=== PATIENT | female | born 2000 | race Caucasian/White ===

== ENCOUNTER 2022-01-30 01:23 | Inpatient (IN) | payer BC, SELFPAY ==
[2022-01-30] VITALS (7 sets, daily range): BP systolic 103–122; BP diastolic 52–87; PULSE 80–96; RESP 14–18; TEMP 35.9–37.2; O2SAT 96–99; BMI 20.5
--- NOTE | ~2022-01-30 | CT_ITS ---
EXAMINATION: CT ABDOMEN AND PELVIS WITH CONTRAST CLINICAL INFORMATION: History of total colectomy. Vomiting. Possible SBO. COMPARISON: None TECHNIQUE: Multidetector volumetric images were obtained from the superior aspect of the liver through the pubic symphysis following administration 85 mL of Omnipaque 350 intravenous contrast. Sagittal and coronal reformatted images were obtained on the technologist's workstation. Oral contrast: No This CT examination was performed using dose optimization techniques as appropriate, variously including the following: *Automated exposure control *Adjustment of mA and/or kV according to patient size (this includes techniques or standardized protocols for targeted exams where dose is matched to indication/reason for exam; i.e. extremities or head) *Use of iterative reconstruction technique DLP: 400 mGy-cm FINDINGS: LUNG BASES: The visualized lung bases are unremarkable. LIVER, GALLBLADDER, AND BILIARY TREE: The liver is normal in size, shape, and attenuation. No focal hepatic lesion or biliary ductal dilatation is present. The gallbladder is unremarkable with no evidence of radiopaque gallstones, gallbladder wall thickening, or obvious pericholecystic inflammatory changes. PANCREAS: Unremarkable. SPLEEN: Unremarkable. ADRENAL GLANDS: Unremarkable. KIDNEYS AND URETERS: The kidneys are normal in size, shape, and attenuation. No hydronephrosis, hydroureter, or calculi seen. No perinephric stranding. BLADDER: Unremarkable. GASTROINTESTINAL TRACT: The stomach is unremarkable. Dilated small bowel leading to an area of fecalization in the pelvis. This leads to the anastomosis in the right lower quadrant. The patient is status post colectomy. The appearance is consistent with obstruction. ABDOMINAL WALL: No significant hernia is appreciated. LYMPH NODES: Normal. VASCULAR: Unremarkable. PELVIC VISCERA: The uterus and adnexa are unremarkable. OSSEOUS STRUCTURES: Unremarkable. CT/CT abdomen pelvis w con IMPRESSION: Total colectomy. There is an enterocolic anastomosis in the right lower quadrant. The bowel leading to the anastomosis is dilated with fecalization. The more proximal small bowel is also dilated and fluid-filled. This appearance is consistent with an obstruction. Fleischner guidelines were followed.
[2022-01-30 01:55] LABS: Basophils Percent Auto 0.2 % (0-2); Eosinophils Percent Auto 0.1 % (0-4); Hemoglobin 14.8 g/dl (12.0-16.0); Imm Gran Abs Auto 0.04 X10*3/uL (0.00-0.03); Imm Gran Pct Auto 0.3 % (0.0-0.4); Lymphocytes Absolute Auto 1.2 X10*3/uL (1.2-4.9); Lymphocytes Percent Auto 8.7 % (20-40); Mean Corpuscular HGB Conc 32.9 g/dl (31.0-35.0); Mean Corpuscular Hemoglobin 27.1 pg (27.0-33.0); Mean Corpuscular Volume 82.4 fL (80.0-98.0); Mean Platelet Volume 10.1 fL (9.4-12.3); Monocytes Absolute Auto 0.4 X10*3/uL (0.1-1.2); Neutrophils Absolute Auto 12.6 x10*3/uL (2.0-8.3); Neutrophils Percent Auto 87.7 % (45-73); Platelet Count 201 X10*3/uL (160-400); Red Blood Count 5.46 X10*6/uL (4.20-5.50); Red Cell Distribution Width 12.5 % (11.0-16.0); White Blood Count 14.3 X10*3/uL (4.8-10.8)
[2022-01-30 01:56] LABS: MANUAL DIFF FLAG NO
[2022-01-30 02:15] LABS: Alanine Aminotransferase 9 U/L (0-31); Albumin Level 4.7 g/dL (3.5-5.0); Alkaline Phosphatase 76 U/L (39-117); Anion Gap 19 (12-20); Aspartate Amino Transferase 17 U/L (5-31); Bilirubin Total 1.1 mg/dL (0.0-1.0); Blood Urea Nitrogen 8 mg/dL (9-16); C Reactive Protein 0.48 mg/dL (< or = 0.50); Calcium 9.7 mg/dL (8.4-10.2); Carbon Dioxide 21 mmol/L (22-29); Chloride 104 mmol/L (96-108); Creatinine Clr Calc Pharmacy 100.6; Estimated Glomerular Filt Rate > 60; Glucose Random 117 mg/dL (60-115); Potassium 4.2 mmol/L (3.3-5.1); Sodium 140 mmol/L (135-145); Total Protein 7.7 g/dL (6.5-8.0)
[2022-01-30 02:32] LABS: Lipase 11 U/L (8-78)
[2022-01-30 03:18] LABS: HCG Quantitative < 2 mIU/mL
[2022-01-30] MEDS: ondansetron HCL 4 MG/2 ML VIAL IVPUSH ×2 (03:44→09:42)
[2022-01-30] MEDS: Ketorolac Tromethamine 15 MG/ML VIAL IVPUSH (03:44)
[2022-01-30] MEDS: Morphine Sulfate 2 MG/ML CARTRIDGE IVPUSH (03:44)
[2022-01-30] MEDS: Lactated Ringers 1,000 ML 999 ML IV (03:51)
--- NOTE | 2022-01-30 04:19 | ED_ITS ---
HPI - Abdominal Pain General Chief Complaint: Abdominal Pain Stated Complaint: Bowel obstruction Time Seen by Provider: 01/30/22 02:54 Source: patient Mode of arrival: ambulatory Limitations: no limitations History of Present Illness HPI narrative: 21 yo female hx of ulcerative colitis s/p total colectomy with J pouch hx of reported self resolved obstruction in the past. She comes in with reports of pain, vomiting, constipation since Sunday. Minimal flatus. Worried she has bowel obstruction MD elicited complaint: abdominal pain Pertinent past history: other (UC with bowel obstruction) Onset (ago): day(s) (Sunday ) Pain Consistency: constant Location: diffuse Severity: moderate Quality: cramping and stabbing Radiation: none Migration to: no migration Relieving factors: eating and movement Context: other (IBD with surgery ) Associated symptoms: nausea and vomiting Related Data Allergies Allergy/AdvReac Type Severity Reaction Status Date / Time amoxicillin Allergy Hives Verified 01/30/22 01:33 Review of Systems Review of Systems Constitutional : No Weight loss, No Fever, No Chills ENT/Mouth : No sore throat, No Rhinorrhea Eyes: No Swelling, No Redness Cardiovascular : No Chest Pain, No SOB, NoEdema Respiratory : No Cough, No Sputum, No Wheezing Gastrointestinal : Positive Nausea, Positive Vomiting, no Diarrhea, positive abdominal Pain, No Hematochezia, No Melena Genitourinary : No Dysuria, No Urinary Frequency, No Hematuria, No Urgency Musculoskeletal : No joint pain, No Myalgias, No Joint Swelling Skin : No Skin Lesions, No rash Neuro : No Weakness, No Numbness, No Dizziness, No Headache Psych : No Anxiety/Panic, No Depression Heme/Lymph: No Bruising, No Lymphadenopathy Endocrine : No Polyuria, No Polydipsia All other systems reviewed and are negative. [facility] Past Medical History Attestation statement: The following information was validated with the patient. Medical History (Updated 01/30/22 @ 05:40 by Rica Guerrero DO) Celiac disease Ulcerative colitis Surgical History H/O total colectomy Social History Social History (Updated 01/30/22 @ 04:30 by Rica Guerrero DO) Patient Tobacco Use Status: Never used Tobacco Advance Directives: No Physical Exam ED Vital Signs: Vital Signs - 24 hr 01/30/22 01:34 01/30/22 03:44 Temperature 98.7 F Pulse Rate 92 Respiratory Rate 16 14 Blood Pressure 122/87 Pulse Oximetry 97 Oxygen Delivery Method Room Air BMI result Body Mass Index 20.5 Appearance: Alert. Oriented X3. in pain mild acute distress. Eyes: Pupils equal, round and reactive to light. ENT: Pharynx normal. Neck: Normal inspection. Neck supple. CVS: Normal heart rate and rhythm. Pulses normal. Respiratory: No respiratory distress. Breath sounds normal. Abdomen: Soft and moderate ttp some distention noted Skin: Skin warm and dry. Normal skin color. Normal skin turgor. Extremities: No lower extremity edema. No calf ttp Neuro: Oriented X 3. No motor deficit. No sensory deficit. Course Course Course Narrative: message sent to Dr. Boom Nur to admit patient MDM - Abdominal Pain MDM Narrative Medical decision making narrative: 21 yo female with UC s/p prior total colectomy here with pain n/v and constipation worried she has bowel obstruction at this time will obtain labs, infl markers, - hydrate, IV toradol and IV morphine for pain. CT scan for obstruction ordered. Dispo per results and findings. Lab Data Result diagrams: 01/30/22 01:50 01/30/22 01:50 Labs: Lab Results 01/30/22 01/30/22 01/30/22 Range/Units 01:50 01:50 04:56 WBC 14.3 H (4.8-10.8) X10*3/uL RBC 5.46 (4.20-5.50) X10*6/uL Hgb 14.8 (12.0-16.0) g/dl Hct 45.0 (37.0-47.0) % MCV 82.4 (80.0-98.0) fL MCH 27.1 (27.0-33.0) pg MCHC 32.9 (31.0-35.0) g/dl RDW 12.5 (11.0-16.0) % Plt Count 201 (160-400) X10*3/uL MPV 10.1 (9.4-12.3) fL Immature Gran % (Auto) 0.3 (0.0-0.4) % Neut % (Auto) 87.7 H (45-73) % Lymph % (Auto) 8.7 L (20-40) % Shoshone % (Auto) 3.0 (2-11) % Eos % (Auto) 0.1 (0-4) % Baso % (Auto) 0.2 (0-2) % Lymph # (Auto) 1.2 (1.2-4.9) X10*3/uL Shoshone # (Auto) 0.4 (0.1-1.2) X10*3/uL Eos # (Auto) 0.0 (0.0-0.4) X10*3/uL Baso # (Auto) 0.0 (0.0-0.2) X10*3/uL Abs Immat Gran (auto) 0.04 H (0.00-0.03) X10*3/uL Absolute Neuts (auto) 12.6 H (2.0-8.3) x10*3/uL Absolute Nucleated RBC 0.000 (0.0-0.012) X10*3/uL Nucleated RBC % (auto) 0.0 (0.0-0.2) /100WBC Sodium 140 (135-145) mmol/L Potassium 4.2 (3.3-5.1) mmol/L Chloride 104 (96-108) mmol/L Carbon Dioxide 21 L (22-29) mmol/L Anion Gap 19 (12-20) BUN 8 L (9-16) mg/dL Creatinine 0.76 (0.5-1.4) mg/dL Estim Creat Clear Calc 100.6 Estimated GFR > 60 Random Glucose 117 H (60-115) mg/dL Calcium 9.7 (8.4-10.2) mg/dL Total Bilirubin 1.1 H (0.0-1.0) mg/dL AST 17 (5-31) U/L ALT 9 (0-31) U/L Alkaline Phosphatase 76 (39-117) U/L C-Reactive Protein 0.48 (< or = 0.50) mg/dL Total Protein 7.7 (6.5-8.0) g/dL Albumin 4.7 (3.5-5.0) g/dL Lipase 11 (8-78) U/L Beta HCG, Quant < 2 mIU/mL COVID-19 (ADAL) Negative (Negative) COVID-19 Clin Com See Note Discharge Plan Discharge Clinical Impression: Small bowel obstruction, Vomiting Patient Disposition: Admitted As Inpatient
[2022-01-30] MEDS: iohexoL 350 MG/ML 100 ML INFUS..BTL 85 ML IV (04:20)
[2022-01-30 05:16] LABS: COVID-19 Test Negative (Negative)
[2022-01-30] MEDS: Lactated Ringers 1,000 ML 100 ML IVCONT (05:46)
[2022-01-30] MEDS: HYDROmorphone HCl 1 MG/ML SYRINGE 0.5 MG IVPUSH ×4 (06:14→21:43)
[2022-01-30] MEDS: Dextrose 5 % and Lactated Ring 1,000 ML 125 ML IVCONT ×2 (06:58→17:14)
--- NOTE | 2022-01-30 08:56 | P.HPGS_ITS ---
History of Present Illness History of Present Illness Date of Service: 01/30/22 Chief complaint: small Bowel obstruction Narrative: Latisha Rae is a 21 year old female Presenting with a sudden onset of abdominal pain in the lower abdomen 2 days prior to admission. The pain seems to increase with oral intake. She then developed nausea and vomiting yesterday and subsequently presented to the emergency department for further evaluation. Her past history is significant for ulcerative colitis diagnosed as the age of 33 years old. She subsequently underwent a total abdominal colectomy with J-pouch at 9 years old. She has had previous episodes of abdominal pain and presumed bowel obstruction which resolved spontaneously. This is the worst episode of pain she has experienced since her surgery. She reports passing flatus but the bowels have not moved for several days. In the emergency department she was noted to have an elevated WBC. CT abdomen and pelvis revealed dilated loops of distal small bowel proximal to the anastomosis suggestive of a bowel obstruction Perhaps due to stricture at the anastomosis. She is admitted to the surgical service for further management. She is currently on no medication for the ulcerative colitis. Review of Systems Review of Systems: Yes all other systems are reviewed and are negative Gastrointestinal: Gastrointestinal: Reports as per HPI, Reports abdominal pain, Reports bloating, Reports GI cramping, Reports nausea and Reports vomiting PMFSH Past Medical History Medical History (Updated 01/30/22 @ 05:40 by Rica Guerrero DO) Celiac disease Ulcerative colitis Surgical History Surgical History H/O total colectomy Social History Social History (Updated 01/30/22 @ 04:30 by Rica Guerrero DO) Patient Tobacco Use Status: Never used Tobacco Advance Directives: No Meds Allergies Allergy/AdvReac Type Severity Reaction Status Date / Time amoxicillin Allergy Hives Verified 01/30/22 01:33 Active Medications: Current Medications Acetaminophen (Acetaminophen 325 Mg Tablet) 650 mg PO Q6H PRN PRN Reason: Pain, Mild (Pain Scale 1-3) Hydromorphone HCl (Hydromorphone Hcl 1 Mg/Ml Syringe) 0.5 mg IVPUSH Q4H PRN; Protocol PRN Reason: Pain, Severe (Pain Scale 7-10) Last Admin: 01/30/22 06:14 Dose: 0.5 mg Lactated Ringer's (Lr) 1,000 mls @ 100 mls/hr IVCONT .Q10H REPLACED BY [facility] Last Admin: 01/30/22 05:46 Dose: 100 mls/hr Dextrose/Lactated Ringer's (D5lr) 1,000 mls @ 125 mls/hr IVCONT .Q8H REPLACED BY [facility] Last Admin: 01/30/22 06:58 Dose: 125 mls/hr Ondansetron HCl (Ondansetron Hcl 4 Mg/2 Ml Vial) 4 mg IVPUSH Q8H PRN PRN Reason: Nausea Oxycodone HCl (Oxycodone Hcl Immed Release 5 Mg Tablet) 5 mg PO Q6H PRN PRN Reason: Pain, Moderate (Pain Scale 4-6 Sodium Chloride (0.9 % Sodium Chloride Flush 3 Ml Syringe) 3 ml IVFLUSH QSHIFT REPLACED BY [facility] Last Admin: 01/30/22 08:03 Dose: Not Given Zolpidem Tartrate (Zolpidem Tartrate 5 Mg Tablet) 5 mg PO BEDTIME PRN PRN Reason: Insomnia Physical Exam Vital Signs: Vital Signs: Last Vital Signs Temp 98.7 F 01/30/22 01:34 Pulse 92 01/30/22 06:02 Resp 14 01/30/22 06:14 BP 116/57 L 01/30/22 06:02 Pulse Ox 96 01/30/22 06:02 O2 Del Method 01/30/22 06:02 BMI result Body Mass Index 20.5 Const: General: cooperative and no acute distress Nutritional Appearance: thin Orientation/consciousness: patient oriented x3 Limitations: no limitations HEENT: Head: Yes normocephalic and Yes atraumatic Ears: hearing grossly normal bilaterally Neck: Neck: Yes no JVD Resp: Effort & Inspection: normal respiratory effort, no audible wheezes, no cough and no respiratory distress Auscultation: clear to auscultation bilaterally GI: Inspection: Yes normal to inspection Palpation (GI): Soft to palpation, Tenderness to palpation present (GI), no guarding, not rigid and No hepatosplenomegaly present Percussion: Yes dullness to percussion Rectal Exam - Female: deferred Skin: General skin exam: no rashes or lesions noted Neuro: General: patient oriented x3 Extrem: General: Yes no clubbing, cyanosis or edema Results Results Labs: Short CBC 01/30/22 Range/Units 01:50 WBC 14.3 H (4.8-10.8) X10*3/uL Hgb 14.8 (12.0-16.0) g/dl Hct 45.0 (37.0-47.0) % Plt Count 201 (160-400) X10*3/uL BMP 01/30/22 01:50 Sodium 140 Potassium 4.2 Chloride 104 Carbon Dioxide 21 L BUN 8 L Creatinine 0.76 Calcium 9.7 Liver Function 01/30/22 Range/Units 01:50 Total Bilirubin 1.1 H (0.0-1.0) mg/dL AST 17 (5-31) U/L ALT 9 (0-31) U/L Alkaline Phosphatase 76 (39-117) U/L Albumin 4.7 (3.5-5.0) g/dL Assessment and Plan (1) Small bowel obstruction: Status: Acute Plan 21-year-old female patient with history of ulcerative colitis, status post total colectomy with J-pouch now with possible stricture at the anastomosis and subsequent bowel obstruction. Patient will be made NPO started on IV fluids and admitted to the surgical service. Gastroenterology consultation obtained, discussed with Dr. Hinds. Repeat laboratories in a.m.. Quality Stroke Does the patient have a stroke diagnosis?: No VTE Prior VTE?: No VTE Risk Level:: Surgical - low VTE Device Contraindication: N/A - Device Ordered VTE Drug Contraindication: Treatment Not Indicated Procedures Date of Service Date of Service: 01/30/22
--- NOTE | 2022-01-30 09:51 | MHC.CM.PN ---
NO IMM REQUIRED PATIENT REPORTS SHE IS STAYING WITH FRIENDS WILL BE A STUDENT AT [employer] untapt, IS ORIGINALLY FROM [place]. SHE IS INDEPENDENT HOME AND COMMUNITY NO DME OR HOME SERVICES HCP IN [place]/COPY REQUESTED PCP IN [place], HASN'T ESTABLISHED AN PCP HERE GAB[facility]ELE PERKINS'[facility] [employer] [facility]SPORT BY FRIEND. D/C PLAN: HOME SELF-CARE
--- NOTE | 2022-01-30 10:11 | P.CDIC_ITS ---
CDI Concurrent Query Documentation Clarification: PHYSICIAN'S DOCUMENTATION REQUEST Date of Query: 01/30/22 1012 Patient Name: Latisha Rae Admit Date: 01/30/22 Dear Doctor, A review of the medical record indicates additional documentation may be needed. Please review below and update the documentation accordingly. Clinical Indicators: The following diagnoses or signs and symptoms were noted in the patient record: Risk Factors/Clinical Indicators/Treatments Per H&P 01/30/22: history of ulcerative colitis, status post total colectomy with J-pouch now with possible stricture at the anastomosis and subsequent bowel obstruction Based on the above, could you clarify in the Progress Notes the appropriate diagnosis, if significant, that supports the above abnormalities and additional evaluation, monitoring, and/or treatment rendered: * Partial small bowel obstruction * Complete small bowel obstruction * Other (please specify) * Unable to determine Use of terms such as suspected, likely, concern for, or probable (associated with a specific diagnosis that is being evaluated, monitored, or treated as if it exists) are acceptable and can be coded in the inpatient setting, when documented at the time of discharge. Thank you, Caity Hickey RN Extension: [phone] Please use your independent medical judgment in providing your response. THIS QUERY IS PART OF THE PERMANENT MEDICAL RECORD Provider Response: Other Other Diagnosis: Partial small bowel obstruction
[2022-01-30] MEDS: Metoclopramide HCl 10 MG/2 ML VIAL 5 MG IVPUSH ×2 (11:30→21:04)
--- NOTE | 2022-01-30 18:35 | P.EN_ITS ---
Event Note Date of Service: 01/30/22 Event Note: GI Consult-Full note dictated-History via patient, her girlfriend, and the EMR. Imp: 21 yo female s/p a reported total colectomy at age 9 for refractory ulcerative colitis with what she describes as a 2 stage J-pouch procedure with a temporary ileostomy. She also describes a history of celiac disease for which she is on a gluten-free diet. She reports being very stable with about 5 or 6 BM's QD until 2020 when she had a transient obstruction with associated N/V, abdominal pain, and decreased BM's. That resolved in about 24 hours with just supportive care in a hospital in [place]. She did see a GI MD in [place] but did not undergo any procedures or treatments. She was well again until just prior to this admission when she developed N/V, abdominal pain and cramps, and decreased BM's. This seemed to have been related to eating a lot of popcorn. Her CT is c/w a distal obstruction above the pouch. Over the past 24 hours since admission she has already started having BM's with resolution of her N/V and improvement in her pain. Her abdominal exam is soft and nondistended, but with some tenderness and somewhat diminished BS. She has a normal CRP and the CT does not describe any significant inflammatory changes nor fluid collections. Given her history in 2020 and at the present time of the abrupt onset of her symptoms and the relatively rapid return of bowel function, along with improvement in her symptoms, I think this would speak most likely for a problem with adhesions and/or the possible inadvertent intake of too much roughage, i.e. popcorn. I tend to doubt this represents anything like pouchitis or an anastomotic stricture. Rec: Since she is already improving I would recommend continued observation and supportive care, a trial of a Dulocolax suppository x 1 to stimulate further BM's, and then slow advancement to a gluten-free and low residue diet. If things go well with that she could be discharged with outpatient follow up. I would consider an eventual scope of the pouch and lower small bowel, and a possible MR Enterography. If things remain problematic here we could proceed with that as an inpatient. D/W patient in detail and she is comfortable with this plan. Thanks.
[2022-01-31] MEDS: Dextrose 5 % and Lactated Ring 1,000 ML 125 ML IVCONT (01:31)
[2022-01-31] MEDS: HYDROmorphone HCl 1 MG/ML SYRINGE 0.5 MG IVPUSH (05:33)
[2022-01-31 06:04] LABS: MANUAL DIFF FLAG NO
[2022-01-31 06:16] LABS: Basophils Percent Auto 0.4 % (0-2); Eosinophils Absolute Auto 0.1 X10*3/uL (0.0-0.4); Eosinophils Percent Auto 2.5 % (0-4); Hematocrit 36.6 % (37.0-47.0); Imm Gran Abs Auto 0.01 X10*3/uL (0.00-0.03); Imm Gran Pct Auto 0.2 % (0.0-0.4); Lymphocytes Percent Auto 38.6 % (20-40); Mean Corpuscular HGB Conc 32.8 g/dl (31.0-35.0); Mean Corpuscular Hemoglobin 27.2 pg (27.0-33.0); Mean Platelet Volume 11.1 fL (9.4-12.3); Monocytes Absolute Auto 0.8 X10*3/uL (0.1-1.2); Monocytes Percent Auto 15.7 % (2-11); Neutrophils Absolute Auto 2.2 x10*3/uL (2.0-8.3); Neutrophils Percent Auto 42.6 % (45-73); Platelet Count 149 X10*3/uL (160-400); Red Blood Count 4.41 X10*6/uL (4.20-5.50); Red Cell Distribution Width 12.7 % (11.0-16.0); White Blood Count 5.1 X10*3/uL (4.8-10.8)
[2022-01-31 06:25] LABS: Anion Gap 12 (12-20); Blood Urea Nitrogen 5 mg/dL (9-16); Calcium 8.5 mg/dL (8.4-10.2); Carbon Dioxide 28 mmol/L (22-29); Chloride 105 mmol/L (96-108); Creatinine Clr Calc Pharmacy 119.4; Estimated Glomerular Filt Rate > 60; Glucose Random 102 mg/dL (60-115); Potassium 3.9 mmol/L (3.3-5.1); Sodium 141 mmol/L (135-145)
[2022-01-31 06:51] VITALS: BP 97/52; PULSE 79; RESP 16; TEMP 36.1; O2SAT 98
--- NOTE | 2022-01-31 07:27 | PHA.MEDREC ---
Pharmacy Consult ? Medication Reconciliation Pharmacy has completed the medication reconciliation. Reviewed med rec done by nursing (Donna). Patient's claim history matches claim to no known home meds, since claims reflect short term use medications finished, with a PRN epi-shot.
--- NOTE | 2022-01-31 07:38 | CONS_ITS ---
DATE OF SERVICE: REQUESTING PHYSICIAN: Chip Nur MD. REASON FOR CONSULTATION: Previous history of ulcerative colitis and bowel obstruction. HISTORY OF PRESENT ILLNESS: This has been obtained from the patient, her girlfriend, and the medical record. Patient is a 21-year-old female, who describes a diagnosis of ulcerative colitis as a young child with subsequent total abdominal colectomy at age 9 due to refractory disease. She describes a 2-stage surgery with a J-pouch formation and a temporary ileostomy. She describes that this worked well for her without any need for further surgeries. She describes that her typical bowel pattern is that of about 5 or 6 soft bowel movements per day. She does describe being treated for a couple episodes of pouchitis for the first couple of years after the surgery, but no problems like that since. The patient also reports a history of biopsy-proven celiac disease, for which she is on a gluten-free diet. The patient describes an episode in 2020 of some abdominal pain, nausea and vomiting, and diminished bowel movements that required a brief hospitalization while in [place]. She describes just some supportive care and imaging studies, but no endoscopy nor surgery. She describes that this all resolved in about 24 to 48 hours with a return to normal bowel function. She did see a GI MD in [place] thereafter, but did not undergo any testing. The patient describes that she was doing well up until a day or so prior to admission when she ate a lot of popcorn and then began having symptoms of abdominal pain, diminished bowel movements, and some eventual nausea and vomiting. This was very similar to the episode she had in [place] in 2020. Due to the persistence of the symptoms, she came here to the hospital and was admitted. Since admission, she has been on some IV fluids. A CT scan describes a distal small-bowel obstruction. Over the course of today, she does report that she is definitely feeling better and describes 3 or 4 small soft stools with improvement of her abdominal pain and resolution of her nausea and vomiting. She has been afebrile. She denies any urinary symptoms. Prior to the onset of her symptoms, she was feeling well with her usual bowel pattern and no diarrhea, urgency, nor hematochezia. She had not been on any antibiotics, significant amounts of NSAIDs, nor had she had any travel or ill contacts. At the present time, she reports that she definitely is feeling better, but is still having some discomfort and feels weak. Her family history is notable for her mother with a history of celiac disease. MEDICATIONS: Her medications at home, none. Her medications here in the hospital include acetaminophen, hydromorphone p.r.n., IV Reglan p.r.n., Zofran p.r.n., oxycodone p.r.n., and Ambien p.r.n. PAST MEDICAL HISTORY: Ulcerative colitis with surgeries as above with J-pouch formation and previous temporary ileostomy. She denies any other medical problems such as diabetes, heart disease, or asthma. She denies any other significant surgeries. 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 She does not smoke nor use any significant amounts of alcohol. FAMILY HISTORY: Mother has celiac disease. REVIEW OF SYSTEMS: CONSTITUTIONAL: Prior to the past 48 hours, she had been feeling well. CARDIAC: No chest pain. PULMONARY: No cough, no hemoptysis. GI: As above. URINARY: No dysuria, no hematuria. PHYSICAL EXAMINATION: GENERAL: The patient is a pleasant, alert, comfortable-appearing female. She has been afebrile. SKIN: Warm and dry. HEENT: Anicteric sclerae. Moist mucous membranes. NECK: Supple. CHEST: Clear. CARDIAC: Normal S1 and S2. ABDOMEN: Soft and nondistended. Bowel sounds are somewhat diminished. She has some mild diffuse tenderness in the lower abdomen. There is no palpable mass, rebound, or guarding. EXTREMITIES: Without edema. LABORATORIES: Her CT scan describes evidence of a distal small bowel obstruction at the level of the enterocolic anastomosis with some dilated and fluid-filled more proximal small bowel. There is no sign of any inflammatory changes nor any intraabdominal fluid collection. She has a normal C-reactive protein. White blood cell count 14.3, hemoglobin 14.8, platelets 201,000. Normal electrolytes. BUN 8, creatinine 0.8. Total bilirubin 1.1, AST 17, ALT 9, alkaline phosphatase 76, C-reactive protein 0.5, albumin 4.7, lipase 11. IMPRESSION: At the present time, the patient appears to be doing better and with some spontaneous improvement in her gastrointestinal symptoms. Based on the clinical history of a similar episode in 2020 that came on suddenly and resolved relatively quickly, as well as this most current episode with similar characteristics, I would think we are more likely to be dealing with a small bowel obstruction from adhesions and/or some dietary indiscretion with a lot of popcorn causing some component of obstruction on that basis. I doubt this represents anything such as an anastomotic stricture or active inflammation such as pouchitis given that she was doing fine up until the time her symptoms started and things are already resolving without any specific treatment. As such, since she is already improving, I would continue supportive care and observation. I have ordered a trial of a Dulcolax suppository to see if that could stimulate some further bowel movements and resolution of her symptoms further. If things do improve, I would advance her slowly to a gluten-free and low-residue diet. If things continue to go well, she could be discharged with outpatient followup. I advised her that I could see her in the office and could consider eventual further workup with endoscopy of the pouch and lower small bowel, and a possible MRI of the abdomen with enterography. However, if things remain problematic here in the hospital, we could proceed with that as an inpatient. I do not think we need to proceed with endoscopy of the pouch at this time. This has all been discussed with the patient in detail and she is comfortable with the plan. Thank you for the consultation. MD TESS Anaya/KAREEN / [id number] MTDAnastacio
--- NOTE | 2022-01-31 07:57 | PM.PNGS ---
Subjective Subjective Date of Service: 01/31/22 Interval history: Overall patient feels improved today with several bowel movements since admission. Appreciate Dr. Hinds' input. She would like to try po today. No further nausea or vomiting. Physical Exam Vital Signs: Vital Signs: Last Vital Signs Temp 97 F 01/31/22 06:51 Pulse 79 01/31/22 06:51 Resp 16 01/31/22 06:51 BP 97/52 L 01/31/22 06:51 Pulse Ox 98 01/31/22 06:51 O2 Del Method 01/31/22 06:51 BMI result Body Mass Index 20.5 Const: General: comfortable and no acute distress Nutritional Appearance: well nourished and thin Orientation/consciousness: patient oriented x3 Limitations: no limitations Resp: Effort & Inspection: normal respiratory effort and no respiratory distress GI: Inspection: Yes normal to inspection Palpation (GI): Soft to palpation, nontender and no guarding Neuro: General: patient oriented x3 Extrem: General: No edema Objective Data Active Medications Acetaminophen (Acetaminophen 325 Mg Tablet) 650 mg PO Q6H PRN PRN Reason: Pain, Mild (Pain Scale 1-3) Hydromorphone HCl (Hydromorphone Hcl 1 Mg/Ml Syringe) 0.5 mg IVPUSH Q4H PRN; Protocol PRN Reason: Pain, Severe (Pain Scale 7-10) Last Admin: 01/31/22 05:33 Dose: 0.5 mg Documented By: RANDALL Dextrose/Lactated Ringer's (D5lr) 1,000 mls @ 80 mls/hr IVCONT .[id number] MOUNA Last Admin: 01/31/22 01:31 Dose: 125 mls/hr Documented By: RANDALL Metoclopramide HCl (Metoclopramide Hcl 10 Mg/2 Ml Vial) 5 mg IVPUSH Q6H PRN PRN Reason: Nausea Last Admin: 01/30/22 21:04 Dose: 5 mg Documented By: RANDALL Ondansetron HCl (Ondansetron Hcl 4 Mg/2 Ml Vial) 4 mg IVPUSH Q8H PRN PRN Reason: Nausea Last Admin: 01/30/22 09:42 Dose: 4 mg Documented By: RHONDA Oxycodone HCl (Oxycodone Hcl Immed Release 5 Mg Tablet) 5 mg PO Q6H PRN PRN Reason: Pain, Moderate (Pain Scale 4-6 Sodium Chloride (0.9 % Sodium Chloride Flush 3 Ml Syringe) 3 ml IVFLUSH QSHIFT MOUNA Last Admin: 01/31/22 07:10 Dose: Not Given Documented By: TYRESE Non-Admin Reason: IV Running Zolpidem Tartrate (Zolpidem Tartrate 5 Mg Tablet) 5 mg PO BEDTIME PRN PRN Reason: Insomnia Labs CBC & Chem 7: 01/31/22 05:19 01/31/22 05:19 Labs: Laboratory Results - last 24 hr 01/31/22 01/31/22 05:19 05:19 MCV 83.0 MCH 27.2 MCHC 32.8 RDW 12.7 Plt Count 149 L D MPV 11.1 Immature Gran % (Auto) 0.2 Neut % (Auto) 42.6 L Lymph % (Auto) 38.6 [place] % (Auto) 15.7 H Eos % (Auto) 2.5 Baso % (Auto) 0.4 Lymph # (Auto) 2.0 [place] # (Auto) 0.8 Eos # (Auto) 0.1 Baso # (Auto) 0.0 Abs Immat Gran (auto) 0.01 Absolute Neuts (auto) 2.2 Absolute Nucleated RBC 0.000 Nucleated RBC % (auto) 0.0 Anion Gap 12 Estim Creat Clear Calc 119.4 Estimated GFR > 60 Random Glucose 102 Calcium 8.5 D Procedures Date of Service Date of Service: 01/31/22 Progress Note: A&P Assessment and plan (1) Small bowel obstruction: Status: Acute (2) Vomiting: Status: Acute Plan Resolving SBO, now with several BMs since admission. Will advance diet and check back later today. Possible d/c if diet tolerated. Time Spent With Patient Time: Total time spent is greater than 50% in coordination of care (as documented) at patient's floor/unit and/or counseling patient: Quality Stroke Does the patient have a stroke diagnosis?: No VTE Prior VTE?: No VTE Risk Level:: Surgical - low VTE Device Contraindication: N/A - Device Ordered VTE Drug Contraindication: Treatment Not Indicated
[2022-01-31] MEDS: Dextrose 5 % and Lactated Ring 1,000 ML 80 ML IVCONT ×2 (09:40→20:24)
[2022-01-31 15:48] VITALS: BP 122/60; PULSE 78; RESP 18; TEMP 37.2; O2SAT 98
[2022-01-31 16:11] LABS: Appearance Urine Clear; Color Urine Yellow; Glucose Urine UA Negative (Negative); Leukocyte Esterase Urine Negative (Negative); Nitrite Urine Negative (Negative); PH 8.5 (5.0-8.0); Urine Blood Negative (Negative); Urine Ketones Negative (Negative); Urine Protein Negative (Neg-Trace)
[2022-01-31] MEDS: Acetaminophen 325 MG TABLET 650 MG PO (20:23)
[2022-01-31 23:43] VITALS: BP 119/59; PULSE 72; RESP 18; TEMP 37; O2SAT 98
[2022-02-01 07:01] VITALS: BP 108/64; PULSE 76; RESP 16; TEMP 36.4; O2SAT 99
--- NOTE | 2022-02-01 07:37 | P.DS_ITS ---
DS: Providers Provider Date of Service: 02/01/22 Date of admission: 01/30/22 05:39 Date of discharge: 02/01/22 Primary care physician: Nonstaff Physician Admitting clinician: Chip Nur Consults: 01/30/22 05:38 Consult to Gastroenterology Routine Consulting Provider: Pedro Hinds Reason for consultation: UC, s/p J Pouch, SBO Has provider been notified: No Discharging clinician: Chip Nur DS: Diagnosis Discharge Diagnosis (1) Small bowel obstruction: Status: Acute (2) Vomiting: Status: Acute DS: Summary Hospital Course Hospital Course: Latisha Rae is a 21 year old female ? Presenting with a sudden onset of abdominal pain in the lower abdomen 2 days prior to admission.? The pain seems to increase with oral intake.? She then developed nausea and vomiting and subsequently presented to the emergency department for further evaluation.? Her past history is significant for ulcerative colitis diagnosed as the age of 33 years old.? 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 She has had previous episodes of abdominal pain and presumed? bowel obstruction which resolved spontaneously.? This is the worst episode of pain she has experienced since her surgery.? She reports passing flatus but the bowels have not moved for several days.? In the emergency department she was noted to have an elevated WBC.? CT abdomen and pelvis revealed dilated loops of distal small bowel proximal to the anastomosis suggestive of a bowel obstruction? Perhaps due to stricture at the anastomosis.? She is admitted to the surgical service for further management.? She is currently on no medication for the ulcerative colitis. Patient was made NPO and started on IV fluids. Consultation was obtained from Dr. Hinds. Over the next 24 hours however the patient began to pass multiple bowel movements and reported improvement in her pain. She had no further nausea or vomiting. She was subsequently started on clear liquids and tolerated this well without any increase in abdominal pain. She was then advanced the next day to a soft, low-fiber diet. This also was well tolerated and she was with minimal abdominal pain. Patient discharged home in stable condition on a 01/29/2020 attending having tolerated a regular diet. She was instructed to stay on a low-fiber diet and should follow up with Dr. iHnds as an outpatient. She should also follow up in our office in 1-2 weeks p.r.n.. She is welcome to call from a new problems or q uestions. Status at Discharge Functional status at discharge: independent ambulation Time Spent with Patient Time attestation: Total time spent providing and/or coordinating discharge services: Discharge coordination time: Less than 30 minutes Quality: Safe Use of Opioids Does Pt have an Active Cancer Diagnosis on the Problem List?: No Quality: Stroke Does the patient have a stroke diagnosis?: No Physical Exam Vital Signs: Vital Signs: Last Vital Signs Temp 97.6 F 02/01/22 07:01 Pulse 76 02/01/22 07:01 Resp 16 02/01/22 07:01 BP 108/64 02/01/22 07:01 Pulse Ox 99 02/01/22 07:01 O2 Del Method 02/01/22 07:01 BMI result Body Mass Index 20.5 Const: General: comfortable and no acute distress Nutritional Appearance: well nourished and thin Orientation/consciousness: patient oriented x3 Limitations: no limitations Resp: Effort & Inspection: normal respiratory effort and no respiratory distress GI: Inspection: Yes normal to inspection Palpation (GI): Soft to palpation, nontender and no guarding Neuro: General: patient oriented x3 Extrem: General: No edema DS: Data Data Completed and Pending Labs on day of discharge: Laboratory Results - last 24 hr 01/31/22 15:47 Urine Color Yellow Urine Appearance Clear Urine pH 8.5 H Ur Specific [place] 1.010 Urine Protein Negative Urine Glucose (UA) Negative Urine Ketones Negative Urine Blood Negative Urine Nitrite Negative Ur Leukocyte Esterase Negative Discharge Plan Discharge Patient Disposition: Home, Self-Care Discharge Diagnosis: Partial small bowel obstruction Referrals: Physician,Salometaff [Primary Care Provider] - 1 Week Chip Nur MD [Physician] - 2 Weeks Pedro Hinds [Physician] - 1 Week Discharge Medications: Continued No Known Home Meds Discharge Orders: Discharge Order (Routine); Ordered 02/01/22 Ordered By: Chip Nur Diet: Low fiber diet Activity on Discharge: As tolerated Stand Alone Forms: Patient Portal Discharge page Care Plan Goals: Return to normal activity and diet Health Concerns: abdominal pain, nausea, vomiting Plan of Treatment: bowel rest, IV hydration Assessment: partial small bowel obstruction Discharge Date/Time: 02/01/22 08:57
--- NOTE | 2022-02-01 08:18 | MHC.CM.PN ---
Patient has been medically cleared for discharge today; discharge disposition is Home Self-Care. No IMM needed. Friend to transport home.
--- NOTE | 2022-02-01 09:31 | P.PNGS_ITS ---
Subjective Subjective Date of Service: 02/01/22 Interval history: Patient feels improved, tolerated a regular diet yesterday without nausea or vomiting overnight. She feels ready to go home today. Would like to follow-up with Gastroenterology as an outpatient. Physical Exam Vital Signs: Vital Signs: Last Vital Signs Temp 97.6 F 02/01/22 07:01 Pulse 76 02/01/22 07:01 Resp 16 02/01/22 07:01 BP 108/64 02/01/22 07:01 Pulse Ox 99 02/01/22 07:01 O2 Del Method 02/01/22 07:01 BMI result Body Mass Index 20.5 Const: General: comfortable and no acute distress Nutritional Appearance: thin Orientation/consciousness: patient oriented x3 Limitations: no limitations Resp: Effort & Inspection: normal respiratory effort GI: Inspection: Yes normal to inspection Palpation (GI): Soft to palpation and nontender Skin: Other: Warm, dry, no rash Neuro: General: patient oriented x3 Objective Data Labs CBC & Chem 7: 01/31/22 05:19 01/31/22 05:19 Labs: Laboratory Results - last 24 hr 01/31/22 15:47 Urine Color Yellow Urine Appearance Clear Urine pH 8.5 H Ur Specific [place] 1.010 Urine Protein Negative Urine Glucose (UA) Negative Urine Ketones Negative Urine Blood Negative Urine Nitrite Negative Ur Leukocyte Esterase Negative Procedures Date of Service Date of Service: 02/01/22 Progress Note: A&P Assessment and plan (1) Small bowel obstruction: Status: Acute Plan Patient small-bowel obstruction is now resolved. She is having multiple bowel movements and is tolerating a regular diet. She will be discharged to home with follow-up in the office in 1-2 weeks. She was advised to avoid a high-fiber diet. She should also follow up with Gastroenterology, Dr. Hinds in 1-2 weeks. Time Spent With Patient Time: Total time spent is greater than 50% in coordination of care (as documented) at patient's floor/unit and/or counseling patient: Quality Stroke Does the patient have a stroke diagnosis?: No VTE Prior VTE?: No VTE Risk Level:: Surgical - low VTE Device Contraindication: N/A - Device Ordered VTE Drug Contraindication: Treatment Not Indicated
== END 2022-02-01 08:57 | disposition home or self-care (01) | DRG 247 ==
LOC: HO.ED 04:53 → HO.EDOVER 05:50 → HO.S3 07:26
PROVIDERS: Admitting Provider Surgery; Emergency Provider Emergency Medicine; Visit Provider Surgery
DX: K56.600 Partial intestinal obstruction, unspecified as to cause (principal); Z93.4 Other artificial openings of gastrointestinal tract status; K50.90 Crohn's disease, unspecified, without complications; K90.0 Celiac disease; Z88.0 Allergy status to penicillin; Z20.822 Contact with and (suspected) exposure to COVID-19; Z90.49 Acquired absence of other specified parts of digestive tract
CPT/HCPCS: 36415; 74177; 80048; 80053; 81003; 83690; 84702; 85025; 86140; 87635; 96361; 96374; 96375; 99285; J1170; J1885; J2270; J2405; J2765; Q9967